=== PATIENT | male | born 1990 | race Caucasian/White ===

== ENCOUNTER 2019-11-18 02:16 | Emergency (ER) | payer SELFPAY ==
[2019-11-18] MEDS ORDERED: Albuterol 200 PUFF (6.7GM INHALER) ONE (02:41)
--- NOTE | 2019-11-18 08:15 | RAD ---
CHEST 1 VIEW: INDICATION: History of shortness of breath. IMPRESSION: No definite acute cardiopulmonary abnormality. COMMENTS: Lungs are clear. Heart size is normal-appearing. No pleural effusion or pneumothorax is evident. N o definite acute osseous abnormality is evident. POS: BH
== END 2019-11-18 03:40 | disposition home or self-care (01) ==
LOC: ERS 02:16 → EDBD 02:16 → ERS 03:40
DX: J45.909 Unspecified asthma, uncomplicated (principal)
CPT/HCPCS: 71045